=== PATIENT | female | born 1995 ===

== ENCOUNTER → 2017-01-03 | Outpatient (CLI) | payer OTHER ==
--- NOTE | 2017-01-03 14:02 | DIAGNOSTIC IMAGING REPORT ---
SOFT TISS HEAD/NECK-THYROID CLINICAL HISTORY: 21 years-old Female presenting with LYMPHADENOPATHY OF HEAD AND NECK. TECHNIQUE: Real-time grayscale and color Doppler ultrasound imaging of the base of the neck was performed. COMPARISON: None. FINDINGS: Left neck: Multiple benign-appearing lymph nodes, the largest measuring 1.2 x 0.4 cm. Right neck: Pathologically enlarged and suspicious appearing lymph node measuring 1.9 x 2.9 x 1.2 cm. This has a thickened cortex and a globular configuration. Additional mildly prominent though benign-appearing lymph nodes noted elsewhere in the right neck. IMPRESSION: Suspicious right cervical lymph node. Fine-needle aspiration of this node is recommended. Differential considerations include reactive versus lymphoproliferative disease. The report will be called/faxed according to standard departmental protocol. Electronically signed by: Jovanni Mcclure M.D. 01/03/2017 2:00 PM Dictated Date/Time: 01/03/2017 1:58 PM
== END | disposition home or self-care (01) ==
LOC: C.ULTR 13:30
PROVIDERS: ATTEND Physician Assistant Medical
DX: R59.0 Localized enlarged lymph nodes (principal)

== ENCOUNTER → 2017-01-11 | Outpatient (CLI) | payer OTHER ==
--- NOTE | 2017-01-11 10:24 | Discharge Instructions ---
Discharge Instructions Procedure Procedure Date: Jan 11, 2017. Reason for visit: Lymphadenopathy. Discharge Discharge Date: Jan 11, 2017. Discharge Diagnosis: Right cervical lymphadenopathy Instructions Activity Recommendations: No limitations Return to School/Work: no limitations Recommended Home Diet: No Limitations, Resume Previous Diet Provider Instructions: Right cervical lymph node fine needle aspiration was performed with 2 passes utilizing 25-gauge needles. The procedure was well tolerated and without immediate complication. ACTIVITY RECOMMENDATIONS: * Rest today. * Resume regular activity in one day. MEDICATIONS: * May take Tylenol or Ibuprofen as needed for pain. DIET: * Resume previous diet. SPECIAL CARE INSTRUCTIONS: Call your doctor if: * Temperature above 101 degrees F. * Pain not relieved by pain medicine ordered. * Increased drainage or redness from incision. * Notify your doctor with any questions or concerns. Call your doctor or go to the nearest Emergency Department if you experience: * Increased chest pain or shortness of breath. FOLLOW UP VISIT: Follow-up with Referring Physician as scheduled. Carmen Diaz Recommendations: Call your doctor if: * Temperature above 101 degrees * Pain not relieved by pain medicine ordered * There is increased drainage or redness from any incision * You have any unanswered questions or concerns. Your Doctors Instructions noted above were prepared by provider Luisito Riley. Patient Signature Section: Patient Instructions Signature Page Dunia Winkler Patient (or Guardian) Signature/Date: I have read and understand the instructions given to me by my caregivers. Caregiver/RN/Doctor Signature/Date: The above-named patient and/or guardian has received patient instructions on this date. + Original Patient Signature Page (only) stays with chart. Please make copy for patient.
--- NOTE | 2017-01-11 10:39 | DIAGNOSTIC IMAGING REPORT ---
ULTRASOUND-GUIDED FINE-NEEDLE ASPIRATION RIGHT CERVICAL LYMPH NODE CLINICAL HISTORY: Right cervical lymphadenopathy. Recent history of mononucleosis. COMPARISON STUDY: Ultrasound of the neck dated 01/03/2017. PROCEDURE: The risks, benefits, and alternatives to the procedure were discussed with the patient. Written informed consent was obtained. The patient was placed supine in ultrasound, and the 2.9 x 1.1 x 1.9 cm hypoechoic right cervical chain lymph node was localized by ultrasound and selected for fine needle aspiration. The right neck was prepped and draped in the usual sterile fashion. The node was aspirated under ultrasound guidance with 2 passes utilizing 25-gauge needles. The first specimen was reviewed by the pathologist to confirm lymphocytes. The second pass was submitted for flow cytometry. The patient tolerated the procedure well and left the department in satisfactory condition. IMPRESSION: Completed fine-needle aspiration of a right cervical chain lymph node as above. Electronically signed by: Luisito Riley M.D. 01/11/2017 10:38 AM Dictated Date/Time: 01/11/2017 10:37 AM
== END | disposition home or self-care (01) ==
LOC: C.ULTR 09:34
PROVIDERS: ATTEND Internal Medicine
DX: R59.0 Localized enlarged lymph nodes (principal); R59.1 Generalized enlarged lymph nodes; D72.820 Lymphocytosis (symptomatic)

== ENCOUNTER → 2017-02-10 | Day surgery (SDC) | payer OTHER ==
[2017-02-08 11:08] VITALS: Ht 158.8 cm; Wt 61.4 kg
[~2017-02-10] VITALS: Ht 158.8 cm; Wt 61.4 kg
[~2017-02-10] MED LIST: ATROPINE SULFATE 0.1 MG/ML 5ML SYR IV PRN; BUPIVACAINE 0.5 % 5 MG/1 ML MPF 30ML VIAL ONE; EpHEDrine SULFATE INJ 50 MG/ML AMP IV PRN; FENTANYL CITRATE INJ 50 MCG/1 ML 2 ML VIAL IV PRN; FENTANYL CITRATE INJ 50 MCG/1 ML 2 ML VIAL ONE; IBUPROFEN 600 MG TAB PO PRN; LACTATED RINGER'S 1000ML 1,000 ML IV SCH; LIDOCAINE HCL 2% 2 ML VIAL (20MG/ML) ONE; LIDOCAINE/EPINEPHRINE 1% INJ 50 ML VIAL ONE; MIDAZOLAM HCL 1 MG/ML 2ML VIAL ONE; ONDANSETRON INJ 2 MG/ML 2 ML VIAL IV PRN; OXYC-57 PO; OXYCODONE/ACETAMINOPHEN 5-325 TAB PO PRN; PROPOFOL IV EMULSION 10 MG/ML 20 ML VIAL IV ONE; SODIUM CHLORIDE 0.9% 1000ML 1,000 ML IV SCH
--- NOTE | 2017-02-10 08:19 | History & Physical Bridge - [place] ---
H&P Re-Evaluation Bridge Note: I have examined the patient, reviewed the History & Physical and in the interval since the performance of the History & Physical I have noted the following changes of clinical significance: No changes noted
[2017-02-10 09:55] VITALS: TEMP 37.3
--- NOTE | 2017-02-10 09:55 | [facility] Post Operative Brief Note ---
Immediate Operative Summary Operative Date Feb 10, 2017. Pre-Operative Diagnosis Lymphadenopathy Post-Operative Diagnosis Same as pre-op Procedure(s) Performed Right Neck Lymph Nodes Excisional Biopsy Surgeon Vaccine Specialist Surgeon(s) Crystal Estimated Blood Loss 2ML Findings large friable lymph node deep to sternocleidomastoid excised. Additional enlarged lymph node excised. Lymph node sent to pathology fresh, small portion wedged and sent for culture. Specimens Culture-right neck lymph node wedge sent for aerobic, anerobic, fungal and microbacterial (AFB culture& smear) A.Right neck lymph node-sent fresh Drains none Anesthesia MAC and local Complication(s) None Disposition Recovery Room / PACU
--- NOTE | 2017-02-10 09:59 | Discharge Instructions ---
Discharge Instructions Date of Service Feb 10, 2017. Visit Reason for Visit: Lymphadenopathy Discharge Discharge Diagnosis / Problem: Lymphadenopathy Discharge Goals Goal(s): Decrease discomfort, Improve function Activity Recommendations Activity Limitations: as noted below Lifting Limitations: until after follow-up appointment Exercise/Sports Limitations: gradually increase as tolerated, until after follow-up appointment (No strenuous exercise or heavy lifting) Shower/Bathe: tomorrow Driving or Machine Use: resume 3 days after discharge (Do not drive while using narcotic pain medication) Anesthesia . Post Anesthesia Instructions: If you have had General Anesthesia or IV Sedation: * Do not drive today. * Resume driving when surgeon permits. * Do not make important decisions or sign legal documents today. * Call surgeon for: 1. Temperature elevations greater than 101 degrees F. 2. Uncontrollable pain. 3. Excessive bleeding. 4. Persistent nausea and vomiting. 5. Medication intolerance (nausea, vomiting or rash). * For nausea and vomiting use only clear liquids such as: tea, soda, bouillon until nausea subsides, then gradually increase diet as tolerated. * If you have any concerns or questions, call your surgeon's office. If physician is unavailable and it is an emergency, call 911 or go to the nearest emergency room. . Instructions / Follow-Up Instructions / Follow-Up You have surgical glue covering your incision. Please allow this to fall off on its own. Please follow-up with Dr. Perez in the general surgery clinic in 1-2 weeks for post-operative incision check and to review pathology. Please call our office at to schedule an appointment if you have not done so already. [facility]. [address] [place] [address] Please contact our office with any further questions or concerns. Diet Recommendations Recommended Home Diet: resume previous diet Procedures Procedures Performed: Right Neck Lymph Nodes Excisional Biopsy Pending Studies Studies pending at discharge: yes List of pending studies: Pathology Medical Emergencies . Who to Call and When: Medical Emergencies: If at any time you feel your situation is an emergency, please call 911 immediately. . Non-Emergent Contact Non-Emergency issues call your: Primary Care Provider, Surgeon Call Non-Emergent contact if: you have a fever, temperature is above 101.5, your pain is not controlled, your pain is worsening, wound has increased drainage, wound has increased redness . . "Provider Documentation" section prepared by Donn Bailey. . [place] Drug Monitoring Program Search Results: patient reviewed within database, no issues identified
--- NOTE | 2017-02-10 10:03 | [facility] Operative Report ---
Operative Report Operative Date Feb 10, 2017. Pre-Operative Diagnosis Lymphadenopathy Post-Operative Diagnosis Same as pre-op Procedure(s) Performed Right Neck Lymph Nodes Excisional Biopsy Surgeon Shuttle Filler Surgeon(s) Crystal Estimated Blood Loss 2ML Findings large friable lymph node deep to sternocleidomastoid excised. Additional enlarged lymph node excised. Lymph node sent to pathology fresh, small portion wedged and sent for culture. Specimens Culture-right neck lymph node wedge sent for aerobic, anerobic, fungal and microbacterial (AFB culture& smear) A.Right neck lymph node-sent fresh Drains None Anesthesia MAC and local Complication(s) None Disposition Recovery Room / PACU Indications 21-year-old female with a history of mono over the summer with persistent lymphadenopathy of the right neck, FNA with some atypical cells, recommend excisional biopsy. Plan for excisional biopsy right neck lymph nodes. The risks of the procedure were discussed, all questions were answered, and the patient agreed to proceed with surgery as planned. Description of Procedure The patient was properly identified, consented, and taken to the operating room where she was placed in the supine position. Monitored anesthesia care was induced. SCDs and a safety belt were placed. The patient's head was rotated to the left. The patient's neck was prepped and draped in the standard sterile fashion. Surgical timeout was performed and all parties were in agreement that this was the correct patient and procedure to be performed and we continued as planned. Local anesthetic was injected along the skin incision. A oblique incision was made in a natural skin crease overlying the mass and deepened down through the subcutaneous tissue with electrocautery. The platysma was divided. The lymph nodes were deep to the sternal cleidomastoid. A 3 cm friable lymph node node was circumferentially dissected, excised, and passed off the table as specimen. The lymphovascular bundle was ligated with 3-0 silk ties. An additional 2 cm lymph node was identified and was excised in a similar manner. A wedge of the first lymph node was taken and sent for culture. The other 2 lymph nodes were sent fresh to pathology. The wound was irrigated and hemostasis was confirmed. The platysma was closed with 3-0 Vicryl interrupted sutures. The skin was closed with interrupted 3-0 Vicryl deep dermal sutures, followed by 4-0 Monocryl running subcuticular suture. Dermabond was placed over the wound. Komal Leo assisted in retracting, dissecting the lymph nodes, and closing the incision. Anesthesia was ceased in the operating room and the patient was taken to the PACU where she recovered without apparent incident. All sponge, instrument and needle counts were correct at the conclusion of the procedure. The patient tolerated the procedure well. I attest to the content of the Intraoperative Record and any orders documented therein. Any exceptions are noted below.
--- NOTE | 2017-02-10 10:12 | Anesthesia Progress Nt - [facility] ---
Anesthesia Post Op Note Date & Time Feb 10, 2017 at 10:12 Vital Signs Pain Intensity: 4 Vital Signs Past 12 Hours Date Time Temp Pulse Resp B/P (MAP) Pulse Ox O2 Delivery O2 Flow Rate FiO2 02/10/17 09:55 37.3 89 18 107/71 (83) 98 Room Air 02/10/17 06:59 36.7 82 16 111/69 (83) 97 Room Air Notes Mental Status: alert / awake / arousable, participated in evaluation Pt Amnestic to Procedure: Yes Nausea / Vomiting: adequately controlled Pain: adequately controlled Airway Patency, RR, SpO2: stable & adequate BP & HR: stable & adequate Hydration State: stable & adequate Anesthetic Complications: no major complications apparent
[2017-02-10 10:20] VITALS: BP 105/69; PULSE 86; O2SAT 100
== END | disposition home or self-care (01) ==
LOC: X.SURG 06:40
PROVIDERS: ATTEND Surgery
DX: R59.0 Localized enlarged lymph nodes (principal)